=== PATIENT | female | born 1985 | race Caucasian/White ===

== ENCOUNTER 2019-08-04 11:00 | Outpatient (RCR) | payer BC, SELFPAY ==
[2019-05-28 10:30] VITALS: BP_SYST 90
--- NOTE | 2019-05-28 11:28 | PTOPEVAL ---
Addendum entered by Krystina Sánchez, PT 05/28/19 11:43: ALSO copy to Dr. Mason--referral for R frozen shoulder; Original Note: PHYSICAL THERAPY EVALUATION AND PLAN OF CARE 05-28-2019 The PT evaluation was completed today for the diagnosis of R shoulder pain/frozen shoulder. The plan of treatment is for 2x/week for 3 weeks. Thank you for referring Ariana to [facility]. Please review, sign, date and return this plan of care CORAL. I agree with and certify that the following plan of care is medically necessary. Referring Physician Date Attending Provider: Leslee Davis, SCREEN PRINTING PASTER *PT Outpatient Evaluation Start: 05/28/19 10:38 Document 05/28/19 10:30 SKYE (Rec: 05/28/19 11:21 SKYE [email or web address]) Therapy Assessment Status Assessment Status Assessment Status Evaluation Outpatient Past Medical History Neurological History Hx Neurological Disorders No Significant History Cardiovascular History Hx Cardiac Disorders No Significant History Respiratory History Hx Asthma Yes: managed with inhalers Gastrointestinal History Hx Gastrointestinal Disorders No Significant History Genitourinary History Hx Genitourinary Disorders No Significant History Musculoskeletal History Hx Spinal Surgery Yes: lumbar surgery 2014 Endocrine History Hx Diabetes Yes: manage with meds Evaluation Information Problem Diagnosis frozen shoulder R Onset Nov 2018 Subjective Information gradual increase in R shoulder Query Text:As Reported By Patient/ pain; no trauma to shoulder; Family saw orthopedic dr- steroids just completed, pain decreased ; diflocan- helps some; Diagnostic Tests X-Rays For This Problem Yes: per pt calcification, tendonitis Previous Treatments Previous Treatments For This Problem no previous PT for shoulder Prior Level of Function Activity Level (Last 3 Months) 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
[2019-06-17 08:00] VITALS: BP_SYST 110
--- NOTE | 2019-06-17 08:31 | PTOPEVAL ---
PHYSICAL THERAPY REEVALUATION AND UPDATED PLAN OF CARE 06-17-2019 Ms. Joe has received 6 PT sessions, from May 27 to today for the treatment of her R shoulder. Compared to the initial evaluation: Pain rating is about the same; reported sleeping tolerance has increased slightly; Quick DASH self assessment has improved by 2%; active and passive ROM of shoulder flexion and abduction have improved, with IR and ER the same; IR continues to be the most painful motion for her. Treatment has included therapeutic exercises to R shoulder, modalities for pain control and education for posture and HEP. Ariana is performing her home exercises to stretch and strengthen her R shoulder, using heat and rest for pain control. PT is to continue 1-2x/week for 4 weeks, to further increase her R shoulder ROM and strength, with progression of her home exercises. Thank you for referring Ariana to [facility]. Please review, sign, date and return this plan of care CORAL. I agree with and certify that the following plan of care is medically necessary. Referring Physician Date Attending Provider: BETY Peguero Dr. *PT Outpatient Re-Evaluation Document 06/17/19 08:00 SKYE (Rec: 06/17/19 08:31 SKYE [email or web address]) Subjective Information Ariana reports: shoulder Query Text:As Reported By Patient/ improved- more flexible in Family shoulder; not working due to coronavirus shut down; doing all exercises at home; wants to continue therapy to get her shoulder better; will call dr monico to see if she can schedule another appointment; Pain Assessment Timing of Pain Assessment Timing of Pain Assessment Assessment Pain Scale Pain Scale Used Numeric (1 - 10) Self Report Pain Assessment Right Shoulder(s) Reported Pain Level 6 Pain Description Burning,Throbbing Pain Frequency Acute Other Pain Description upper lateral GH joint Lowest Pain Intensity 0 Greatest Pain Intensity 7 Pain Aggravating Factors Exercise/Activity Other Pain Aggravating Factors jerk,quick motion of shoulder, reach too high;awaken from sleep 1-2 x/night Pain Relief Interventions Used By Heat,Inactivity/Rest, Patient Medication Other Alleviating Interventions prescription med-diflocam; tylenol PRN; Additional Pain Comments heat at end of session 10 min in sitting Pain Score Pain Score 6: Self Report Upper Extremity Range of Motion Scapular/ Shoulder Range of Motion Right Shoulder Flexion - Active 125 Shoulder Flexion - Passive 140 Shoulder Abduction - Active 105 Shoulder Abduction - Passive 110 Should
[2019-07-15 08:00] VITALS: BP_SYST 125
--- NOTE | 2019-07-15 08:45 | PTOPEVAL ---
PHYSICAL THERAPY REEVALUATION AND UPDATED PLAN OF CARE 07-15-2019 Ms. Joe has received 13 PT sessions, from May 27 to today, for the diagnosis of R frozen shoulder. Compared to the last reevaluation: she has improved with: shoulder flexion and abduction ROM and strength; sleep tolerance and Quick DASH is 21% limitation in functional activity with self assessment; Her shoulder IR and ER ranges are the same and most painful to her. Pain rating is the same at 0-7/10. She remains motivated and her home exercise program has been progressed. PT is to continue 2x/week for 3 weeks, to further increase her strength and flexibility, to be able to return to full home and work activities. Thank you for referring Ariana Joe to [facility]. Please review, sign, date and return this updated plan of care [facility]. I agree with and certify that the following plan of care is medically necessary. Referring Physician Date Attending Provider: BETY Peguero Dr. Document 07/15/19 08:00 SKYE (Rec: 07/15/19 08:34 SKYE [email or web address]) Assessment Status Assessment Status Re-evaluation Subjective Information Ariana reports: shoulder Query Text:As Reported By Patient/ is better with flexibility but Family still need some strength in it; doing exercises at home; is not working due to the coronavirus, out until August 15; wants to continue PT to get shoulder back to normal. Pain Assessment Timing of Pain Assessment Timing of Pain Assessment Assessment Pain Scale Pain Scale Used Numeric (1 - 10) Self Report Pain Assessment Right Shoulder(s) Reported Pain Level 2 Pain Description Burning,Throbbing Pain Frequency Chronic Other Pain Description post GH joint Lowest Pain Intensity 0 Greatest Pain Intensity 7 Other Pain Aggravating Factors when wake up in AM; use arm alot, lifting; Pain Relief Interventions Used By Heat,Inactivity/Rest, Patient Medication Other Alleviating Interventions taking advil, 2 pills every 6- 8 hours; Additional Pain Comments with sleeping, do not awaken due to shoulder pain Pain Score Pain Score 2: Self Report Upper Extremity Range of Motion Scapular/ Shoulder Range of Motion Right Shoulder Flexion - Active 130 Shoulder Flexion - Passive 150 Shoulder Extension - Active 35 Shoulder Abduction - Active 125 Shoulder Abduction - Passive 125 Shoulder Medial Rotation - Passive 20 Shoulder Medial Rotation - Active palm to R SIJ Query Text:Reach Behind the Back Shoulder Lateral Rotation - Passive 30 Shoulder Lateral Rotation - Active palm to behind ear Query Text:Reach
--- NOTE | 2019-08-04 11:34 | PTOPEVAL ---
PHYSICAL THERAPY DISCHARGE 08-04-2019 Ms. Joe has received 19 PT sessions, from May 27 to today, for the diagnosis of R frozen shoulder. Compared to the last reevaluation on 07-15-2019: Ariana has improved with: pain rating at the worst rating has decreased from 7 to 5/10; Quick DASH self assessment has improved from 21 to 14% limitation; active shoulder ranges of flexion, abduction, IR and ER; AAROM of shoulder abduction, IR and ER; strength with B UE Lift floor/waist and shoulder all ranges; Ariana is independent with her home exercises and agrees to discharge from PT services. She is to continue with her HEP, to gain the end range of motion strength and IR flexibility. Thank you for referring Ariana Joe to [facility]. Please review, sign, date and return this discharge CORAL. I agree with and certify that the following plan of care is medically necessary. Referring Physician Date Attending Provider: BETY Peguero Dr. Document 08/04/19 10:45 SKYE (Rec: 08/04/19 11:26 SKYE [id number]) Subjective Information Ariana reports: reaching Query Text:As Reported By Patient/ behind the back motion is Family better; using arm easier to reach into cabinet 2nd shelf; doing stretches and exercises at home; still off work; agrees with PT d/c; Self assessment with the Quick DASH is 14% limitation. Pain Assessment Timing of Pain Assessment Timing of Pain Assessment Assessment Pain Scale Pain Scale Used Numeric (1 - 10) Self Report Pain Assessment Right Shoulder(s) Reported Pain Level 3 Pain Description Burning Radicular Pain Location burn over side of shoulder and back of joint; Pain Frequency Chronic Lowest Pain Intensity 0 Greatest Pain Intensity 5 Pain Aggravating Factors Exercise/Activity Other Pain Aggravating Factors when awaken in AM; Pain Relief Interventions Used By Exercise,Heat,Inactivity/Rest, Patient Medication Other Alleviating Interventions taking advil 2 pills, 3x/day; stretching shoulder; Additional Pain Comments is sleeping through night Pain Score Pain Score 3: Self Report Upper Extremity Range of Motion Scapular/ Shoulder Range of Motion Right Shoulder Flexion - Active 135 Shoulder Flexion - Passive 155 Shoulder Abduction - Active 135 Shoulder Medial Rotation - Active palm to sacrum active; with Query Text:Reach Behind the Back stretch palm to waist Shoulder Lateral Rotation - Active palm to back of head Query Text:Reach Behind the Head Upper Extremity Muscle Strength Testing General Upper Extremity Strength Gross Upper Extremity Strength Comments sitting: pully for warm up of shoulder x 4 minutes;
== END 2019-08-04 16:13 | disposition home or self-care (01) ==
LOC: ANHPT 11:00
PROVIDERS: PCP Nurse Practitioner Adult Health; Visit Provider Nurse Practitioner Adult Health
DX: M25.511 Pain in right shoulder (principal); M75.01 Adhesive capsulitis of right shoulder
CPT/HCPCS: 97014; 97110; 97140; 97161; G0283

== ENCOUNTER 2020-08-25 07:39 | Outpatient (RCR) | payer BC, SELFPAY ==
--- NOTE | 2020-08-25 10:38 | PCPTNOTE ---
Patient arrived for physical therapy appointment today. Evaluation was not performed as the order is for a functional capacity evaluation and this facility is not equipped to perform this type of evaluation.
== END 2020-11-10 11:21 | disposition home or self-care (01) ==
LOC: ANHPT 07:39
PROVIDERS: PCP Nurse Practitioner Adult Health; Visit Provider Nurse Practitioner Adult Health
DX: M54.5 Low back pain (principal)
CPT/HCPCS: 99199